=== PATIENT | female | born 1995 | race Caucasian/White ===

== ENCOUNTER 2016-12-14 01:27 | Emergency (ER) | payer SELFPAY ==
[~2016-12-14] VITALS: Ht 162.6 cm; Wt 103.7 kg
[~2016-12-14 01:27] MED LIST: TRAMADOL HCL50 MG PO
[2016-12-14] MEDS ORDERED: MOTRIN800 MG PO (03:15)
[2016-12-14 03:20] VITALS: BP 131/87
== END 2016-12-14 03:39 | disposition home or self-care (01) ==
LOC: EME 01:27
DX: S43.402A Unspecified sprain of left shoulder joint, initial encounter (principal); S13.9XXA Sprain of joints and ligaments of unspecified parts of neck, initial encounter; W10.9XXA Fall (on) (from) unspecified stairs and steps, initial encounter; F17.200 Nicotine dependence, unspecified, uncomplicated
CPT/HCPCS: 71020; 73000; 73030; 99281; 99284